=== PATIENT | female | born 1995 | race Caucasian/White ===

== ENCOUNTER 2017-10-31 18:55 | Emergency (ER) | payer OTHER ==
[~2017-10-31] VITALS: Ht 152.4 cm; Wt 63.5 kg
[2017-10-31 19:50] LABS: URINE BILIRUBIN NEGATIVE (Negative); URINE BLOOD NEGATIVE (Negative); URINE CLARITY CLEAR; URINE COLOR YELLOW; URINE GLUCOSE-RANDOM NEGATIVE (Negative); URINE KETONES NEGATIVE (Negative); URINE LEUKOCYTES-REFLEX TRACE (Negative); URINE NITRITE-REFLEX NEGATIVE (Negative); URINE PROTEIN NEGATIVE (Negative)
[2017-10-31 20:21] LABS: BACTERIA-REFLEX None Seen /HPF (None Seen); MUCUS 4-6 Moderate strn/LPF (None Seen); SQUAMOUS >10 Many /LPF (0-3); URINE RBC None Seen /HPF (0-2); URINE WBC-REFLEX 0-5 Rare /HPF (0-5)
[2017-10-31 20:22] LABS: ABSOLUTE BASOPHILS 0.1 thou/uL (0.0-0.2); ABSOLUTE EOSINOPHILS 0.2 thou/uL (0.0-0.7); ABSOLUTE LYMPHOCYTES 2.3 thou/uL (0.8-5.3); ABSOLUTE MONOCYTES 0.4 thou/uL (0.0-1.2); ABSOLUTE NEUTROPHILS 6.1 thou/uL (1.6-8.1); BASOPHILS 0.7 %; CASTS None Seen /LPF (None Seen); CRYSTALS None Seen /LPF (None Seen); EOSINOPHILS 2.5 %; HEMOGLOBIN 11.9 gm/dL (12.0-15.0); MCH 30.6 pg (26.0-34.0); MCV 89.9 fL (80.0-100.0); MONOCYTES 4.8 %; MPV 9.4 fl. (7.2-11.1); NUCLEATED RBCS 0 /100WBC; PLATELET COUNT* 260 thou/uL (150-400); RDW-CV 13.2 % (10.5-14.5); WBC 9.1 thou/uL (4.0-11.0)
[2017-10-31 20:24] LABS: CALCIUM 9.2 mg/dL (8.5-10.1); CREATININE 0.6 mg/dL (0.6-1.3); POTASSIUM 3.7 mmol/L (3.5-5.1)
[2017-10-31] MEDS ORDERED: ZOFRAN4 MG PO (23:12)
[2017-10-31 23:14] VITALS: BP 94/51
== END 2017-10-31 23:15 | disposition home or self-care (01) ==
LOC: M.ERS 18:55 → EDBD 18:55 → M.ERS 23:15
PROVIDERS: Physician Assistant
DX: O26.891 Other specified pregnancy related conditions, first trimester (principal); R10.30 Lower abdominal pain, unspecified; O21.9 Vomiting of pregnancy, unspecified; F17.200 Nicotine dependence, unspecified, uncomplicated; Z3A.01 Less than 8 weeks gestation of pregnancy